=== PATIENT | male | born 2000 | race Caucasian/White ===

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

== ENCOUNTER 2024-08-15 17:30 | Emergency (ER) | payer BC ==
--- OUTSIDE RECORDS SUMMARY | 2024-08-15 17:32 | XMS REPORT | Continuity of Care Document ---
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
--- NOTE | 2024-08-15 19:41 | RAD REPORT ---
EXAM: CT brain without contrast HISTORY: TRAUMA COMPARISON: None TECHNIQUE: Multiple contiguous axial images were obtained and a CT of the brain without contrast. Sag ittal and coronal reformats were performed. FINDINGS:No evidence of hydrocephalus, intracranial hemorrhage, or extra-axial fluid collection. The brain is normal in morphology. The calvarium is intact. The visualized paranasal sinuses and mastoid air cells are essentially clear . IMPRESSION: No evidence of acute intracranial abnormality. EXAM: CT of the cervical spine without contrast HISTORY: TRAUMA COMPARISON: None TECHNIQUE: Multiple contiguous axial images were obtained in a CT of the cervical spine without contr ast. Sagittal and coronal reformats were performed. FINDINGS: The vertebral bodies demonstrate normal height and alignment. No evidence of acute fracture or subluxation.. No degenerative changes are present. No prevertebral soft tissue swelling is seen. The posterior facets are well aligned. Normal alignment of the skull base with the cervical spine is seen. The lung apices are unremarkable. IMPRESSION: No evidence of acute osseous abnormality of the cervical spine.
--- NOTE | 2024-08-15 19:56 | RAD REPORT ---
EXAMINATION: XR Elbow Left 3 View CLINICAL INDICATION: Male, 24 years old. PAIN TECHNIQUE: 3 view radiographs of the left elbow were obtained. COMPARISON: No prior exam. FINDINGS: No evidence of fracture or dislocation. Normal alignment. No joint effusion. No evidence of arthropathy. No suspicious focal bone lesion. Soft tissues are unremarkable. IMPRESSION: No acute or significant abnormalities.
--- NOTE | 2024-08-15 20:11 | ER ---
Nurse's Notes [facility] Name: Kurt Pereira Age: 24 yrs Sex: Male : 2000 Arrival Date: 08/15/2024 Time: 17:30 Bed 25 Private MD: Diagnosis: Unspecified injury of head, initial encounter;Pain in left elbow Presentation: 08/15 17:53 Chief complaint: Patient states: he slipped in dog urine at approx 1711 today hitting ap3 the back of his head on the floor and his elbow on the stair. patient reports his pain as a 5/10 on the pain scale. Coronavirus screen: At this time, the client does not indicate any symptoms associated with coronavirus-19. Ebola Screen: No symptoms or risks identified at this time. Initial Sepsis Screen: Does the patient meet any 2 criteria? No. Patient's initial sepsis screen is negative. Does the patient have a suspected source of infection? No. Patient's initial sepsis screen is negative. Risk Assessment: Do you want to hurt yourself or someone else? Patient reports no desire to harm self or others. Onset of symptoms was August 15, 2024 at 17:11. 17:53 Method Of Arrival: Ambulatory ap3 17:53 Acuity: LUCIANA 3 ap3 Triage Assessment: 17:55 General: Appears uncomfortable, Behavior is calm, cooperative, appropriate for age. ap3 Pain: Complains of pain in left elbow Pain currently is 5 out of 10 on a pain scale. Pain began suddenly. Neuro: Level of Consciousness is awake, alert, obeys commands, Oriented to person, place, time, situation, Appropriate for age. Cardiovascular: Patient's skin is warm and dry. Respiratory: Airway is patent Respiratory effort is even, unlabored, Respiratory pattern is regular, symmetrical. Historical: - Allergies: 17:54 No Known Allergies; ap3 - PMHx: 17:54 Seizure; ap3 - Immunization history:: Client reports receiving the 2nd dose of the Covid vaccine. - Infectious Disease History:: Denies. - Social history:: Smoking status: Reported history of juuling and/or vaping. Screenin:55 Abuse screen: Denies threats or abuse. Nutritional screening: No deficits noted. ap3 Tuberculosis screening: No symptoms or risk factors identified. 18:11 [facility] ED Fall Risk Assessment (Adult) History of falling in the last 3 months, ar6 including since admission Yes- single mechanical fall (1 pt) Confusion or Disorientation No (0 pts) Intoxicated or Sedated No (0 pts) Impaired Gait No (0 pts) Mobility Assist Device Used No (0 pt) Altered Elimination No (0 pt) Score/Fall Risk Level 0 - 2 = Low Risk Oriented to surroundings, Maintained a safe environment, Educated pt \T\ family on fall prevention, incl call for assistance when getting out of bed, Hourly rounding (assess needs \T\ fall precautionary measures) done. Primary Survey: 17:56 NO uncontrolled hemorrhage observed. A: The client is awake and alert. The airway is ap3 patent. Breathing/Chest: Spontaneous respiratory effort, equal unlabored respirations, breath sounds clear bilaterally, regular pattern, symmetrical chest rise and fall. Circulation: No external hemorrhage present. Regular and strong central pulse, skin warm/dry/normal color. Disability Client is alert. Exposure/Environment: A warming method has been applied: A warm blanket has been provided to the patient. Assessment: 18:11 General: Appears in no apparent distress. comfortable, Behavior is calm, cooperative, ar6 appropriate for age. Pain: Complains of pain in scalp Pain currently is 5 out of 10 on a pain scale. Neuro: Level of Consciousness is awake, alert, obeys commands, Oriented to person, place, time, situation. Cardiovascular: Capillary refill < 3 seconds. Respiratory: Airway is patent. GI: Abdomen is round non-distended. : No signs and/or symptoms were reported regarding the genitourinary system. EENT: Oral mucosa is moist. Derm: Skin is intact, is healthy with good turgor, Skin is dry. Musculoskeletal: pt. reports left elbow pain Reports pain in left arm. Vital Signs: 17:53 BP 132 / 74; Pulse 94; Resp 17; Temp 97.5; Pulse Ox 100% ; Weight 104.33 kg; Height 6 ap3 ft. 6 in. ; Pain 5/10; 18:11 BP 123 / 85; Pulse 77; Resp 18; Temp 98.1; Pulse Ox 99% on R/A; Weight 105.69 kg; ar6 Height 6 ft. 6 in. ; Pain 5/10; 19:07 BP 114 / 63; Pulse 84; Resp 19; Pulse Ox 99% on R/A; ar6 19:55 BP 122 / 82; Pulse 76; Resp 17; Pulse Ox 99% on R/A; ar6 20:12 BP 123 / 76; Pulse 72; Resp 18; Pulse Ox 99% on R/A; ar6 18:11 Body Mass Index 26.93 (105.69 kg, 198.12 cm) ar6 17:53 Pain Scale: Adult ap3 18:11 Pain Scale: Adult ar6 [place] Coma Score: 17:56 Eye Response: spontaneous(4). Motor Response: obeys commands(6). Verbal Response: ap3 oriented(5). Total: 15. Trauma Score (Adult): 17:56 Eye Response: spontaneous(1); Verbal Response: oriented(1); Motor Response: obeys ap3 commands(2); Systolic BP: > 89 mm Hg(4); Respiratory Rate: 10 to 29 per min(4); [place] Score: 15; Trauma Score: 12 ED Course: 17:31 Patient arrived in ED. ra3 17:32 Margret Kaplan FNP-C is [facility]. kb 17:32 Norman Deng MD is Attending Physician. kb 17:54 Triage completed. ap3 17:56 Arm band placed on right wrist. ap3 17:56 Patient maintains SpO2 saturation greater than 95% on room air. ap3 18:03 Kiana Lockett, RN is Primary Nurse. ar6 18:[address] No apparent distress. Awaiting CT Scan. ar6 18:11 Patient has correct armband on for positive identification. Bed in low position. Call ar6 light in reach. Side rails up X 1. Provided Education on: plan of care. Pulse ox on. NIBP on. Door closed. Lights dimmed. Moved to private room. Warm blanket given. 18:11 No provider procedures requiring assistance completed. ar6 18:18 Elbow Left 3 View XRAY In Process Unspecified. EDMS 18:39 CT Head C Spine In Process Unspecified. EDMS Administered Medications: No medications were administered Medication: 18:11 VIS not applicable for this client. ar6 Outcome: 20:10 Discharge ordered by . kb 20:13 Discharged to home ambulatory, ar6 20:13 Condition: good 20:13 Discharge instructions given to patient, family, Instructed on discharge instructions, follow up and referral plans. Demonstrated understanding of instructions, follow-up care, 20:16 Patient left the ED. ar6 Signatures: Dispatcher [employer] EDMargret Verdugo, FERNANDAC Miya Dumont, RN RN zana3 Romana Peraza Amber, RN RN ar6
--- NOTE | 2024-08-15 20:11 | EDPHYS ---
Physician Documentation [facility] Name: Kurt Pereira Age: 24 yrs Sex: Male : 2000 Arrival Date: 08/15/2024 Time: 17:30 Bed 25 Private MD: ED Physician Norman Deng HPI: 08/15 21:02 This 24 yrs old Male presents to ER via Ambulatory with complaints of Fall Injury, Head kb Injury Without LOC-Adult, Elbow Injury - left. 21:02 Pt is a 24 year old male who presents after slip and fall just area captain. States he hit the kb back of his head and left elbow. Reports pain to elbow, head and soreness to neck. Denies loc. Historical: - Allergies: 17:54 No Known Allergies; ap3 - PMHx: 17:54 Seizure; ap3 - Immunization history:: Client reports receiving the 2nd dose of the Covid vaccine. - Infectious Disease History:: Denies. - Social history:: Smoking status: Reported history of juuling and/or vaping. ROS: 21:01 Constitutional: As per HPI kb Exam: 21:01 Constitutional: This is a well developed, well nourished patient who is awake, alert, kb and in no acute distress. Head/Face: Normocephalic, atraumatic. ENT: Moist Mucous membranes Cardiovascular: Regular rate Respiratory: Respirations even and unlabored. No increased work of breathing. Talking in full sentences Abdomen/GI: Soft, non-tender. No distention Skin: Warm, dry with normal turgor. Normal color. Neuro: Awake and alert, GCS 15, oriented to person, place, time, and situation. 21:01 Musculoskeletal/extremity: Extremities: grossly normal except: noted in the left elbow: decreased ROM, pain, swelling, tenderness, ROM: limited active range of motion due to pain, Circulation is intact in all extremities. Sensation intact. Weight bearing: able to fully bear weight, Vital Signs: 17:53 BP 132 / 74; Pulse 94; Resp 17; Temp 97.5; Pulse Ox 100% ; Weight 104.33 kg; Height 6 ap3 ft. 6 in. ; Pain 5/10; 18:11 BP 123 / 85; Pulse 77; Resp 18; Temp 98.1; Pulse Ox 99% on R/A; Weight 105.69 kg; ar6 Height 6 ft. 6 in. ; Pain 5/10; 19:07 BP 114 / 63; Pulse 84; Resp 19; Pulse Ox 99% on R/A; ar6 19:55 BP 122 / 82; Pulse 76; Resp 17; Pulse Ox 99% on R/A; ar6 20:12 BP 123 / 76; Pulse 72; Resp 18; Pulse Ox 99% on R/A; ar6 18:11 Body Mass Index 26.93 (105.69 kg, 198.12 cm) ar6 17:53 Pain Scale: Adult ap3 18:11 Pain Scale: Adult ar6 [place] Coma Score: 17:56 Eye Response: spontaneous(4). Motor Response: obeys commands(6). Verbal Response: ap3 oriented(5). Total: 15. Trauma Score (Adult): 17:56 Eye Response: spontaneous(1); Verbal Response: oriented(1); Motor Response: obeys ap3 commands(2); Systolic BP: > 89 mm Hg(4); Respiratory Rate: 10 to 29 per min(4); [place] Score: 15; Trauma Score: 12 MDM: 17:32 Medical Screening Exam initiated kb 21:01 Differential diagnosis: closed head injury, contusion, fracture. Data reviewed: vital kb signs, nurses notes. Counseling: I had a detailed discussion with the patient and/or guardian regarding the historical points, exam findings, and any diagnostic results supporting the discharge/admit diagnosis, radiology results, the need for outpatient follow up, a family practitioner, to return to the emergency department if symptoms worsen or persist or if there are any questions or concerns that arise at home. 08/15 17:54 Order name: CT Head C Spine; Complete Time: 19:42 kb 08/15 17:54 Order name: Elbow Left 3 View XRAY; Complete Time: 20:05 kb Administered Medications: No medications were administered Disposition Summary: 08/15/24 20:10 Discharge Ordered Notes: Location: Home Condition: Stable kb Diagnosis - Unspecified injury of head, initial encounter kb - Pain in left elbow kb Followup: kb - With: Emergency Department - When: As needed - Reason: Worsening of condition Followup: kb - With: Private Physician - When: 2 - 3 days - Reason: Recheck today's complaints, Continuance of care, Re-evaluation by your physician Discharge Instructions: - Discharge Summary Sheet kb - Head Injury, Adult, [id number] kb - Elbow Contusion, [id number] kb Forms: - Work release form kb - Medication Reconciliation Form kb - Antibiotic Education kb - Prescription Opioid Use kb - Patient Portal Instructions kb - Leadership Thank You Letter kb Signatures: Dispatcher [employer] EDMS Margret Kaplan, Miya Sanchez RN RN ap3 Corrections: (The following items were deleted from the chart) 17:55 17:54 Elbow Left 3 View+RAD.RAD.BRZ ordered. EDMS EDMS
[2024-08-15 23:16] VITALS: TEMP 98.1; O2SAT 99
[2024-08-15 23:20] VITALS: BP 123/76
== END 2024-08-15 20:16 | disposition home or self-care (01) ==
LOC: ER 17:30
DX: S09.90XA Unspecified injury of head, initial encounter (principal); M25.522 Pain in left elbow; W01.0XXA Fall on same level from slipping, tripping and stumbling without subsequent striking against object, initial encounter
CPT/HCPCS: 70450; 72125; 99283